=== PATIENT | female | born 1945 ===

== ENCOUNTER → 2017-10-03 | Outpatient (CLI) | payer MEDICARE ==
[~2017-10-03] MED LIST: ASPI-1182 PO; CITA-106 PO; FURO80 PO; HYDR25TA84 PO; INSLAN SQ; LISI-662 PO; METO-558 PO
[2017-10-03 15:11] VITALS: BP 132/69
== END | disposition home or self-care (01) ==
LOC: SRCNTR 09:23
PROVIDERS: ATTEND Internal Medicine Clinical Cardiac Electrophysiology
DX: Z45.02 Encounter for adjustment and management of automatic implantable cardiac defibrillator (principal); Z88.8 Allergy status to other drugs, medicaments and biological substances
CPT/HCPCS: G0463

== ENCOUNTER → 2017-10-17 | Outpatient (CLI) | payer MEDICARE ==
[~2017-10-17] VITALS: Ht 165.1 cm; Wt 70.0 kg
[2017-10-17 11:55] VITALS: BP 144/83
== END | disposition home or self-care (01) ==
LOC: EDUNIT# 10:30 → SRCNTR 11:28
PROVIDERS: ATTEND Internal Medicine Clinical Cardiac Electrophysiology
DX: Z45.02 Encounter for adjustment and management of automatic implantable cardiac defibrillator (principal); I11.0 Hypertensive heart disease with heart failure; I50.9 Heart failure, unspecified; E11.9 Type 2 diabetes mellitus without complications
CPT/HCPCS: G0463